=== PATIENT | male | born 1960 | race Caucasian/White ===

== ENCOUNTER 2022-04-17 00:03 | Emergency (ER) | payer BC, SELFPAY ==
--- NOTE | ~2022-04-17 | XR_ITS ---
EXAMINATION: XR chest 1V portable Exam Date/Time: 04/17/2022 0:55 CDT HISTORY: Dyspnea Comparison: None available. RESULT: Lines, tubes, and devices: Right chest port terminating in the right atrium. Lungs and pleura: Low lung volumes. Linear and streaky bibasilar opacities likely representing atele ctasis. Cardiomediastinal silhouette: Stable. Other: No acute osseous or upper abdominal finding. IMPRESSION: Low lung volumes with likely bibasilar atelectasis. Infection is not excluded. Reviewed, dictated and finalized at location K.
[2022-04-17 00:03] VITALS: BP 118/79; PULSE 86; RESP 16; TEMP 36.5; O2SAT 94
--- NOTE | 2022-04-17 00:08 | ECG_ITS ---
Measurements Intervals [place] Rate: 87 P: 11 CT: 180 QRS: -8 QRSD: 191 T: 12 QT: 418 QTc: 505 Interpretive Statements SINUS RHYTHM RIGHT BUNDLE BRANCH BLOCK [120+ ms QRS DURATION, UPRIGHT V1, 40+ ms S IN I/aVL/V4/V5/V6] NO PREVIOUS ECG AVAILABLE FOR COMPARISON Electronically Signed On 04-17-2022 7:22:27 CDT by Sachin Magana M.D.
[2022-04-17 01:28] VITALS: BP 110/70; PULSE 75; RESP 15; O2SAT 95
[2022-04-17] MEDS: LACTATED RINGERS 1,000 ML 999 ML IV CONT (01:29)
[2022-04-17 01:34] LABS: Basophils Percent Auto 0.4 % (0.2-1.2); Eosinophils Absolute Auto 0.1 K/mm3 (0-0.3); Eosinophils Percent Auto 1.7 % (0-4.4); Hematocrit 44.1 % (42.0-52.0); Hemoglobin 14.5 g/dL (14.0-18.0); Immature Granulocyte Absolute 0.04 K/mm3 (0.00-0.031); Immature Granulocyte Percent A 0.5 % (0-0.5); Lymphocytes Absolute Auto 1.55 K/mm3 (0.9-3.2); Lymphocytes Percent Auto 20.3 % (18.3-44.2); Mean Corpuscular HGB Conc 32.9 g/dl (32-36); Mean Corpuscular Hemoglobin 29.5 pg (26-34); Mean Corpuscular Volume 89.8 fl (80-100); Mean Platelet Volume 10.4 fl (7.4-10.4); Monocytes Absolute Auto 0.5 K/mm3 (0.1-0.6); Neutrophils Absolute Auto 5.4 K/mm3 (1.3-6.7); Neutrophils Percent Auto 71.1 % (45.5-73.1); Platelet Count Result 171 k/mm3 (150-375); Red Blood Count 4.91 M/mm3 (4.6-6.20); Red Cell Distribution Width 13.4 % (11.5-14.5); White Blood Count 7.7 K/mm3 (4.5-10.0)
[2022-04-17 01:44] LABS: Ethanol 91 mg/dL (<10)
[2022-04-17 01:45] LABS: Anion Gap 17 mmol/L (8-16); Blood Urea Nitrogen 14 mg/dL (9-20); Calcium 9.4 mg/dL (8.4-10.2); Carbon Dioxide 20 mmol/L (22-30); Chloride 106 mmol/L (98-107); Estimated CRCL calculation 114 ml/min; Estimated Glomerular Filt Rate > 60; Glucose 143 mg/dL (65-110); INR 1.2; Potassium 4.3 mmol/L (3.4-5.0); Prothrombin Time 14.6 Seconds (11.1-14.7); Sodium 143 mmol/L (137-145)
[2022-04-17 01:46] LABS: Partial Thromboplastin Time 24.6 SECONDS (22.3-36.8)
--- NOTE | 2022-04-17 01:46 | ED.GENADULT ---
HPI - General Adult General Chief complaint: Allergic Reaction Stated complaint: ALLERGIC REACTION Time Seen by Provider: 04/17/22 00:35 History of Present Illness HPI narrative: This is a 62-year-old male presenting to ED for what he believes is an allergic reaction. The patient was out at a bar drinking beer earlier tonight. He decided to walk home. He then sat on the ground and had multiple episodes of vomiting and became very diaphoretic. Since then he has felt very dizzy. Patient attributes this to be starting lisinopril which he started taking 5 days ago and has had a poor reaction to in the past. Patient denies chest pain, difficulty breathing, abdominal pain, itching, wheezing, or sensation of throat closure. Patient states he feels much better symptoms are resolving. Related Data Allergies Allergy/AdvReac Type Severity Reaction Status Date / Time No Known Allergies Allergy Unknown Verified 04/17/22 01:31 Review of Systems Review of Systems: CONSTITUTIONAL: Denies night sweats. EYES: No eye pain ENT: Denies rhinorrhea CARDIOVASCULAR: Denies palpitations RESPIRATORY: Denies hemoptysis GASTROINTESTINAL: Denies hematemesis GENITOURINARY: Denies hematuria. SKIN: Denies rash MUSCULOSKELETAL: Denies myalgia. NEUROLOGIC: Denies weakness. PSYCHIATRIC: Denies delusions PMFSH Past Medical History Medical History (Updated 04/17/22 @ 06:53 by Chidi Chadwick MD) HTN (hypertension) Lymphoma Surgical History Surgical History (Updated 04/17/22 @ 01:49 by Chidi Chadwick MD) H/O: knee surgery History of ankle surgery Social History Social History (Updated 04/17/22 @ 01:50 by Chidi Chadwick MD) Social History: Patient drinks alcohol occasionally, smokes pack cigarettes every 2 d Exam Narrative: APPEARANCE: No apparent distress. Head atraumatic. EYES: PERRLA/EOMI, NOSE: Normal no drainage NECK: Supple, Trachea midline RESPIRATORY: CTAB, No increased work of breathing. CARDIOVASCULAR: S1S2 appreciated ABDOMINAL: Soft, nontender, nondistended, MUSCULOSKELETAl: No obvious deformities NEURO: Alert. Moving 4/4 extremities SKIN:: Warm, dry. Normal color PSYCHIATRIC: Normal affect Course Vital Signs Vital signs: Vital Signs Temperature 97.7 F 04/17/22 00:03 Pulse Rate 86 04/17/22 00:03 Respiratory Rate 16 04/17/22 00:03 Blood Pressure 118/79 04/17/22 00:03 Pulse Oximetry 94 04/17/22 00:03 Oxygen Delivery Room Air 04/17/22 00:03 Temperature 97.6 F 04/17/22 04:33 Pulse Rate 71 04/17/22 06:46 Respiratory Rate 20 04/17/22 06:46 Blood Pressure 141/89 H 04/17/22 06:46 Pulse Oximetry 99 04/17/22 06:46 Oxygen Delivery Room Air 04/17/22 00:03 Medical Decision Making MDM Narrative Medical decision making narrative: This is a 62-year-old male presenting with an acute onset of diaphoresis/vomiting/dizziness. While the patient attributes this to lisinopril I find that to be unlikely as he has been taking it for 5 days. When patient 1st arrived he was diaphoretic and dizzy. a screening EKG was obtained in triage which showed a right bbb w/ some st depressions. A cardiac workup was ordered. EKG interpretation: Rhythm [sinus], Rate 87, [place] -[normal], AR -[normal], QRS Right bundle-branch block, QTC [normal], T waves nonspecific T-wave inversions in multiple leads, ST Segments - [Negative for concerning elevations] Final interpretations: normal sinus rhythm with a right bundle-branch block and nonspecific repolarization abnormalities Vital Signs Vital Signs: Vital Signs Temperature 97.7 F 04/17/22 00:03 Pulse Rate 86 04/17/22 00:03 Respiratory Rate 16 04/17/22 00:03 Blood Pressure 118/79 04/17/22 00:03 Pulse Oximetry 94 04/17/22 00:03 Oxygen Delivery Room Air 04/17/22 00:03 Temperature 97.6 F 04/17/22 04:33 Pulse Rate 71 04/17/22 06:46 Respiratory Rate 20 04/17/22 06:46 Blood Pressure 141/89 H 08
[2022-04-17 01:57] LABS: Troponin I < 0.012 ng/mL (0.000-0.034)
[2022-04-17 02:25] VITALS: BP 116/74; PULSE 72; RESP 15; O2SAT 96
[2022-04-17 04:33] VITALS: BP 138/93; PULSE 65; RESP 14; TEMP 36.4; O2SAT 99
[2022-04-17 05:02] LABS: Troponin I < 0.012 ng/mL (0.000-0.034)
[2022-04-17 06:46] VITALS: BP 141/89; PULSE 71; RESP 20; O2SAT 99
== END 2022-04-17 07:04 | disposition home or self-care (01) ==
PROVIDERS: Emergency Provider Emergency Medicine; PCP Family Medicine
DX: R11.2 Nausea with vomiting, unspecified (principal); R78.0 Finding of alcohol in blood; Y90.4 Blood alcohol level of 80-99 mg/100 ml; I10 Essential (primary) hypertension; F17.210 Nicotine dependence, cigarettes, uncomplicated; Z85.72 Personal history of non-Hodgkin lymphomas
CPT/HCPCS: 36415; 71045; 80048; 80307; 84484; 85025; 85610; 85730; 93005; 96360; 99284; J7120